=== PATIENT | male | born 1960 | race Caucasian/White ===

== ENCOUNTER 2023-02-02 09:38 | Emergency (ER) | payer BC, SELFPAY ==
[2023-02-02 09:55] VITALS: BP 136/85; PULSE 64; RESP 16; TEMP 36.9; O2SAT 98
--- NOTE | 2023-02-02 10:00 | ED.MALEGU ---
HPI - Male Genitourinary General Chief complaint: Urogenital-Male Stated complaint: Uti Time Seen by Provider: 02/02/23 10:00 Source: patient Mode of arrival: ambulatory Limitations: no limitations History of Present Illness HPI Narrative: 62-year-old male presents with complaint foul smelling urine for 2 days. Reports that he had chills that started approximately 1 week ago. No other symptoms. Reports history of frequent urinary tract infections. States that he does not completely empty bladder and has history of narrow urethra. Does have a urologist in [place]. Last had urethra dilated approximately 4 years ago. Saw urologist recently and no planned for dilation at this time. But has another appointment in 4 months. Patient is afebrile. Denies nausea vomiting. States when chills started he knew he was getting a urinary tract infection so he increased water intake trying to clear it himself. All systems reviewed and negative except as noted above. Related Data Home Medications Medication Instructions Recorded Confirmed amlodipine 5 mg-benazepril 20 mg 1 cap PO BID 02/02/23 02/02/23 capsule atorvastatin 20 mg tablet 20 mg PO DAILY 02/02/23 02/02/23 fenofibrate 160 mg tablet 160 mg PO DAILY 02/02/23 02/02/23 semaglutide 1 mg/dose (4 mg/3 mL) 0.25 mg subcut WEEKLY 02/02/23 02/02/23 subcutaneous pen injector (Ozempic) tamsulosin 0.4 mg capsule 0.4 mg PO DAILY 02/02/23 02/02/23 Allergies Allergy/AdvReac Type Severity Reaction Status Date / Time No Known Allergies Allergy Verified 02/02/23 09:52 Review of Systems Review of Systems: CONSTITUTIONAL: Denies fever, chills, or sweats. EYES: Denies visual changes, redness, or discharge. ENT: Denies rhinorrhea, congestion, sore throat, or otalgia. CARDIOVASCULAR: Denies chest pain, palpitations, or edema. RESPIRATORY: Denies cough or dyspnea. GASTROINTESTINAL: Denies abdominal pain, nausea, vomiting, or diarrhea. GENITOURINARY: Denies dysuria or hematuria. Reports foul-smelling urine. SKIN: Denies rash or itching. MUSCULOSKELETAL: Denies back pain, joint pain, or myalgia. NEUROLOGIC: Denies headache, numbness, or weakness. PSYCHIATRIC: Denies anxiety or depression. All other systems reviewed are negative, except as documented in HPI. PMFSH Comments At time of signature, agree with nursing past medical, surgical, social and family history. There is no relevant family history pertinent to the presenting complaint. Exam Narrative: GENERAL: This is a well-nourished, well-developed patient, in no apparent distress. HEAD: normocephalic, atraumatic. EYES: PERRL. Sclera clear/white. Vision is grossly intact. EARS: External ears normal NOSE: External nose normal NECK: Neck supple, non-tender without lymphadenopathy, masses or thyromegaly. CARDIOVASCULAR: Regular rate and rhythm without murmurs, gallops, or rubs. RESPIRATORY: Clear to auscultation. Breath sounds equal bilaterally. No wheezes, rales, or rhonchi. SKIN: warm, Dry, intact with no suspicious lesions or rash, good texture and turgor. NEURO: awake, alert, and oriented to person, place and time. There were no obvious focal neurologic abnormalities. EXTREMITIES: No joint tenderness, effusion, or edema noted. Course Course Level of Care: Express Care Visit Vital Signs Vital signs: Vital Signs Temperature 36.9 C 02/02/23 09:55 Pulse Rate 64 02/02/23 09:55 Respiratory Rate 16 02/02/23 09:55 Blood Pressure 136/85 02/02/23 09:55 Pulse Oximetry 98 02/02/23 09:55 Temperature 36.9 C 02/02/23 09:55 Pulse Rate 64 02/02/23 09:55 Respiratory Rate 16 02/02/23 09:55 Blood Pressure 136/85 02/02/23 09:55 Pulse Oximetry 98 02/02/23 09:55 Reviewed MDM - Male Genitourinary MDM Narrative Medical decision making narrative: History of narrow urethra, frequent urinary tract infections. Reports no UTIs recently. Patient has appointment with urologist in 4 months
== END 2023-02-02 10:16 | disposition home or self-care (01) ==
PROVIDERS: Emergency Provider Nurse Practitioner Family
DX: N39.0 Urinary tract infection, site not specified (principal); B96.20 Unspecified Escherichia coli [E. coli] as the cause of diseases classified elsewhere; N35.919 Unspecified urethral stricture, male, unspecified site; Z87.440 Personal history of urinary (tract) infections; I10 Essential (primary) hypertension; E11.9 Type 2 diabetes mellitus without complications; Z85.820 Personal history of malignant melanoma of skin
CPT/HCPCS: 81003; 87077; 87086; 87186; 99213; G0463